=== PATIENT | male | born 1960 | race Caucasian/White ===

== ENCOUNTER 2016-12-18 16:16 | Emergency (ER) | payer OTHER ==
[~2016-12-18] VITALS: Ht 200.7 cm; Wt 182.0 kg
[2016-12-18 16:33] VITALS: Ht 200.7 cm; Wt 182.0 kg
--- NOTE | 2016-12-18 19:08 | RADRPT ---
PROCEDURE: XR Wrist. CLINICAL INDICATION: Left wrist pain and trauma. TECHNIQUE: AP, oblique, scaphoid and lateral views of the left wrist were performed. COMPARISON: No prior studies are available for comparison. FINDINGS: The osseous structures are intact. No destructive bony lesions are identified. Interosseous spaces are normal. Soft tissues surrounding the wrist are unremarkable. IMPRESSION: No visualized traumatic injury. If there is high clinical suspicion for traumatic injury, further evaluation with CT should be consi dered. RPTAT: AA .Chencho Jain MD, MD Date Time Electronically viewed and signed by .Chencho Jain MD, on 12/18/2016 19:08 .P/
[2016-12-18] MEDS ORDERED: IBUP-1542 PO (19:24)
--- NOTE | 2016-12-18 19:30 | RADRPT ---
PROCEDURE: Xray left ribs. CLINICAL INDICATION: Trauma due to a fall. Left rib pain. TECHNIQUE: 8 views of the left ribs. Frontal and obliques. COMPARISON: None available FINDINGS: The osseous structures and surrounding soft tissues of the left rib cage are intact. No acute fract ure is seen. No radiopaque foreign body is identified. IMPRESSION: 1. Unremarkable left ribs x-ray series. RPTAT: QQ .Panda Miller MD, MD Date Time Electronically viewed and signed by .Panda Miller MD, on 12/18/2016 19:29 .R/
--- NOTE | 2016-12-18 19:47 | ERD ---
ER Documentation Chief Complaint Chief Complaint left rib pain, left wrist pain s/p fall yesterday HPI 56 year old male comes in with a trip and fall last night complaining of left rib pain and left wrist pain. 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 Worse in movement, better at rest. He denies hemoptysis, chest pain otherwise or shortness breath. ROS All systems reviewed and are negative except as per history of present illness. Medications Home Meds Active Scripts Ibuprofen* (Motrin*) 600 Mg Tab, 600 MG PO Q6, #30 TAB Prov:ASHANTI LVOE PA-C 12/18/16 PMhx/Soc Hx Alcohol Use: Yes Hx Substance Use: No Hx Tobacco Use: Yes Smoking Status: Former smoker Physical Exam Vitals Vital Signs Date Time Temp Pulse Resp B/P Pulse Ox O2 Delivery O2 Flow Rate FiO2 12/18/16 16:33 98.7 65 20 206/102 98 Physical Exam General: Well-developed, well-nourished. The patient appears in no acute distress. HEENT: Head is normocephalic, atraumatic. No scleral icterus. Neck: Supple. Nontender. Lungs: Clear to auscultation. Normal air movement. Chest wall tenderness at the left lateral lip, no crepitus. Heart: Regular rate and rhythm. S1 and S2 are normal. No murmurs, gallops, or rubs. Abdomen: Soft, nontender, nondistended. Bowel sounds are normoactive. Extremities: Full range of motion of the left wrist with flexion and hyperextension, there is no evidence of bony deformities, no erythema, no warmth. Patient is able to make a fist. Neurologic: Alert and oriented 3. No focal deficits. Skin: Normal turgor. No rash or lesions. Results 24 hrs DIAGNOSTIC IMAGING REPORT Patient: BRENDA HERNÁNDEZ : 1960 Age: 56 Sex: M MR #: [id number] DOS: 12/18/16 1807 Ordering MD: ASHANTI LOVE PA-C Location: [facility] Room/Bed: PROCEDURE: XR Wrist. CLINICAL INDICATION: Left wrist pain and trauma. TECHNIQUE: AP, oblique, scaphoid and lateral views of the left wrist were performed. COMPARISON: No prior studies are available for comparison. FINDINGS: The osseous structures are intact. No destructive bony lesions are identified. Interosseous spaces are normal. Soft tissues surrounding the wrist are unremarkable. IMPRESSION: No visualized traumatic injury. If there is high clinical suspicion for traumatic injury, further evaluation with CT should be considered. RPTAT: AA .Chencho Jain MD, MD Date Time Electronically viewed and signed by .Chencho Jain MD, MD on 12/18/2016 19:08 .P/ CC: ASHANTI LOVE PA-C Radiology Main Line: [phone] DIAGNOSTIC IMAGING REPORT Patient: BRENDA HERNÁNDEZ : 1960 Age: 56 Sex: M MR #: [id number] DOS: 12/18/16 1807 Ordering MD: ASHANTI LOVE PA-C Location: [facility] Room/Bed: PROCEDURE: Xray left ribs. CLINICAL INDICATION: Trauma due to a fall. Left rib pain. TECHNIQUE: 8 views of the left ribs. Frontal and obliques. COMPARISON: None available FINDINGS: The osseous structures and surrounding soft tissues of the left rib cage are intact. No acute fracture is seen. No radiopaque foreign body is identified. IMPRESSION: 1. Unremarkable left ribs x-ray series. RPTAT: QQ .Panda Miller MD, Date Time Electronically viewed and signed by .Panda Miller MD, MD on 12/18/2016 19:29 .R/ CC: ASHANTI LOVE PA-C Procedures/[facility] [place] ED course: Patient left wrist was placed in a Velcro wrist splint. Splint Assessment: Neurovascularly intact post splint placement with good fit. MDM: 56-year-old male comes in with left rib contusion, left wrist sprain. There is no evidence of pneumothorax, rib fracture on the left side, also patient's left wrist x-rays are unremarkable, there is no acute fractures. He was placed in a Velcro wrist splint for comfort. Departure Diagnosis: Primary Impression: Contusion of rib on left side Additional Impression: Left wrist sprain Condition: Good Patient Instructions: Rib Contusion, Wrist Sprain ASHANTI LOVE PA-C Dec 18, 2016 19:46
== END 2016-12-18 19:31 | disposition home or self-care (01) ==
LOC: FTE 16:16
DX: S20.212A Contusion of left front wall of thorax, initial encounter (principal); S63.502A Unspecified sprain of left wrist, initial encounter; W01.0XXA Fall on same level from slipping, tripping and stumbling without subsequent striking against object, initial encounter; Y92.9 Unspecified place or not applicable; Z87.891 Personal history of nicotine dependence
CPT/HCPCS: 29125; 71100; 73110; Z7502; Z7610